=== PATIENT | female | born 2000 | race Hispanic/Latino ===

== ENCOUNTER 2019-06-30 14:26 | Emergency (ER) | payer SELFPAY ==
--- NOTE | 2019-06-30 14:48 | ED.PDOC ---
History of Present Illness - General Chief Complaint: Head Injury Stated Complaint: hit in back of head with soccer ball Time Seen by Provider: 06/30/19 14:45 - History of Present Illness Initial Comments: Pt brought by EMS but refused to be seen . Allergies/Adverse Reactions: Allergies NO KNOWN ALLERGY Allergy (Verified 06/30/19 14:33) Review of Systems - Review of Systems Unable to Obtain Due To: other - refused Physical Exam - Physical Exam General Appearance: Alert - Refused for examination Departure - Departure Clinical Impression: Facial injury Time of Disposition: 14:47 Disposition: Left Against Medical Advice Departure Forms: ED Discharge - Pt. Copy, Patient Portal Self Enrollment
[2019-06-30 14:58] VITALS: BP 132/87; O2SAT 98
== END 2019-06-30 14:53 | disposition left against medical advice (07) ==
LOC: ER 14:26
DX: S09.90XA Unspecified injury of head, initial encounter (principal); W21.02XA Struck by soccer ball, initial encounter; Y92.9 Unspecified place or not applicable; Z53.29 Procedure and treatment not carried out because of patient's decision for other reasons